=== PATIENT | female | born 1990 | race African-American/Black ===

== ENCOUNTER 2024-04-12 16:41 | Emergency (ER) | payer OTHER, SELFPAY ==
--- NOTE | ~2024-04-12 | US_ITS ---
EXAMINATION: US PELVIS CLINICAL INFORMATION: Pain with question of IUD migration COMPARISON: None available. TECHNIQUE: Ultrasound of the pelvis is performed using both transabdominal and transvaginal transducers along with Doppler. Transvaginal imaging is performed due to inadequate visualization transabdominally. FINDINGS: Uterus: The uterus is anteverted and measures 7.7 x 4.3 x 4.9 cm. And IUD is present in the uterus which appears to be positioned low in the endometrial cavity and there is a question of discontinuity of the arms. The double wall endometrial thickness is 5 mm. The uterus is smooth in contour and has normal myometrial echogenicity. No visible fibroid. Adnexa: Both ovaries are visualized. There is normal color flow to the adnexa. There is no ovarian torsion. There is no pelvic ascites or fluid collection. Right ovary measures 4.1 x 2.4 x 1.8 cm for a volume of 9.4 mL which includes a corpus luteal cyst measuring 1.7 cm. Left ovary measures 2.6 x 1.6 x 2.1 cm for a volume of 4.6 mL with a punctate 1 mm calcification. US/US pelvic and transvaginal IMPRESSION: IUD appears to be positioned low in the endometrial cavity and there is a question of discontinuity of the arms and fracture.
[2024-04-12 16:43] VITALS: BP 123/72; PULSE 81; RESP 14; TEMP 36.1; O2SAT 98; BMI 30.5
--- NOTE | 2024-04-12 16:50 | ED.GENADULT ---
[facility] - General Adult General Chief complaint: Vaginal Bleeding Stated complaint: issue with IUD Time Seen by Provider: 04/12/24 20:37 Source: patient and RN notes reviewed Mode of arrival: ambulatory Limitations: no limitations History of Present Illness ED Provider: Crystal Us PA-C [facility] narrative: This is a 34-year-old female, , who presents emergency department with complaints of vaginal bleeding and pelvic pain. Patient reports that on Wednesday night she was having penetrative sexual intercourse and noticed that throughout the day she became increasingly more sore. She states that the following day she noticed some bleeding every time she wipes after using the restroom. She denies history of similar symptoms in the past. She [facility] She does not have an OBGYN, last seen by OBGYN 10 years ago when her daughter was born. She denies any fevers, chills, chest pain, shortness on breath, nausea, vomiting, dysuria, hematuria, frequency or urgency. She does endorse foul smelling discharge/clots. She typically has normal menses, last menstrual cycle was March 19. Denies any other complaints or concerns at this time. MD complaint: Vaginal bleeding, pelvic pain Relieving factors: none Exacerbating factors: none Associated symptoms: denies other symptoms Treatments prior to arrival: none Related Data Previous Rx's ?Medication ?Instructions ?Recorded doxycycline hyclate 100 mg capsule 100 mg PO BID 7 days #13 caps 04/12/24 Allergies Allergy/AdvReac Type Severity Reaction Status Date / Time promethazine [Phenergan] AdvReac Unknown shake, Verified 04/12/24 16:49 tremors From PHENERGAN Allergy Unknown INVOLUNTARY Uncoded 08/08/20 18:10 SPASMS, SHAKES Review of Systems Review of Systems: Yes all other systems are reviewed and are negative Constitutional: Constitutional: Reports as per [facility] Past Medical History Attestation statement: The following information was validated with the patient. Social History Social History Alcohol intake: current Alcohol intake frequency: holidays/special occasions only Smoked in Last 30 Days: No Use of substances other than those prescribed or required for medical reasons: No Any prior treatment program specific to substance use: No Advance Directives: No Advance Directives Information Provided: No Do you have a plan to hurt others: No Plan Patient : No Physical Exam ED Vital Signs: Vital Signs - 24 hr 04/12/24 16:43 04/12/24 20:30 04/12/24 22:43 Temperature 97.0 F 97.4 F 97.4 F Pulse Rate 81 73 73 Respiratory Rate 14 16 16 Blood Pressure 123/72 111/56 L 111/56 L Pulse Oximetry 98 100 100 Oxygen Delivery Method Room Air Room Air Room Air BMI result Body Mass Index 30.5 Const General: cooperative, comfortable and no acute distress Orientation/consciousness: patient oriented x3 Limitations: no limitations HENMT Head: Yes normal to inspection, Yes normocephalic and Yes atraumatic Ears: hearing grossly normal bilaterally General nose exam: Normal external nose present Face and sinus: Yes normal facial exam Mouth: Normal oral and palatal mucosa present, oropharynx normal and moist mucous membranes Throat: Yes posterior oropharynx normal Eyes General: appearance normal, both eyes and all related structures Eyelids: Yes eyelids normal Conjunctivae: conjunctivae normal Sclerae: sclerae normal Pupils: Equal, round and reactive pupils present EOM: EOMs intact bilaterally Neck Neck: Yes normal visual inspection, Yes full ROM and Yes no lymphadenopathy Lymphatic: no lymphadenopathy noted Chest Chest palpation & inspection: normal inspection of the chest Resp Effort & Inspection: normal respiratory effort and able to speak in complete sentences Auscultation: clear to auscultation bilaterally, no crackles, no rales, no rhonchi and no wheezes Cardio Rate: regular rate Rhythm: regular rhythm Heart sounds: S1 normal heart sound present and S2 normal heart sound present GI Other: Abdomen is soft, with no exquisite tenderness noted on examination, suprapubic cramping noted, no point tenderness noted. Inspection: Yes normal to inspection Other: Pelvic examination performed with Pily gibbons RN present at all times. There is active bright red blood noted coming from the cervical os, no IUD strings identified on pelvic examination. General: Yes Bimanual renal exam normal bilaterally External Female Exam: normal external appearance and normal appearance of the urethra Speculum Exam - Vagina: normal appearance of the vagina and normal palpation Speculum Exam - Cervix: normal appearance of the cervix, Cervical os closed and nontender Bimanual exam- vagina & uterus: normal palpation and No Cervical tenderness present Bimanual Exam- Adnexa, other: normal adnexae Skin General skin exam: no rashes or lesions noted Trauma: no lacerations or abrasions Wounds: no wounds Neuro General: patient oriented x3 and moves all extremities Cranial nerves: Yes Equal, round and reactive pupils present Extrem General: Yes normal to inspection Right upper extremity: normal to inspection Left upper extremity: normal to inspection Right lower extremity: normal to inspection Left lower extremity: normal to inspection Course Course Course Narrative: 34-year-old female presents for evaluation of pelvic pain and vaginal bleeding. She reports having sexual intercourse last Wednesday night. She states that she had some discomfort the following day and has had vaginal bleeding and pelvic pain since. She reports she went to urgent care yesterday and ?they could not see my IUD strings. ? Plan for labs, , pelvic ultrasound Reevaluation(s) Time: 22:00 Medications Administered Discontinued Medications Generic Name Dose Route Start Last Admin Trade Name Freq PRN Reason Stop Dose Admin Ceftriaxone Sodium 500 mg/ 0 mg 04/12/24 21:43 04/12/24 22:09 Lidocaine HCl 1 ml IM 04/12/24 21:44 350 kit ONCE ONE Administration Doxycycline Monohydrate 100 mg 04/12/24 21:43 04/12/24 22:09 Doxycycline Monohydrate 100 Mg Capsule PO 04/12/24 21:44 100 mg ONCE ONE Administration Medical Decision Making Medical Decision Making [facility] Narrative: This is a 34-year-old female, , who presents emergency department with complaints of vaginal bleeding cramping. Patient currently has an IUD that was placed approximately 8 years ago, and states that over the weekend she was having intercourse and states that several hours later she became very sore. She states that she has had bleeding every time she is wiping while using the restroom. She states that this is a new partner, reports that she would like prophylactic treatment for STIs. Labs, UA, an ultrasound was ordered prior to my assessment. Ultrasound revealed possible fractured IUD in a low-lying uterus. Pelvic examination revealing mild blood noted coming from the closed cervical os, no cervical motion tenderness, no abnormal vaginal discharge. No palpable masses, and no significant tenderness on examination. I discussed this finding with my attending physician, Dr. Lisa is in agreement with plan and workup. We do not have OBGYN coverage, therefore unable to provide any input. Uterine perforation unlikely as patient has no significant tenderness, with a essentially normal physical exam. There is no IUD string present on pelvic examination. Given findings of ultrasound, I advised patient to follow-up with OBGYN outpatient. There has no urgent need for transfer for or escalation of care at this time given patient not significantly tender, normal vital signs, and blood work within normal limits. I discussed this finding and plan with patient who understands and agrees with plan. Patient given OBGYN referral, advised to call tomorrow to make an appointment. She understands and agrees with plan. She was given return precautions. Patient stable for discharge. Differential Diagnosis Differential Diagnoses: The differential diagnosis associated with the presentation includes IUD malfunction, abnormal uterine bleeding, , uterine rupture-unlikely Admission/Observation Consideration of admission/observation: Escalation of care including admission/observation considered Escalation of care including admission/observation considered however given workup today not warranted at this time. Lab Data MDM Lab Attestation statement: I reviewed the patient's lab results. No leukocytosis, stable H&H, chemistry within normal limits, UA revealing small blood, otherwise does not appear to be infected. HCG negative 04/12/24 17:29 04/12/24 17:29 Labs: Lab Results 04/12/24 Range/Units 17:29 WBC 8.1 (4.8-10.8) X10*3/uL RBC 4.45 (4.20-5.50) X10*6/uL Hgb 14.3 (12.0-16.0) g/dl Hct 41.9 (37.0-47.0) % MCV 94.2 (80.0-98.0) fL MCH 32.1 (27.0-33.0) pg MCHC 34.1 (31.0-35.0) g/dl RDW 12.8 (11.0-16.0) % Plt Count 246 (160-400) X10*3/uL MPV 10.8 (9.4-12.3) fL Immature Gran % (Auto) 0.2 (0.0-0.4) % Neut % (Auto) 58.1 (45-73) % Lymph % (Auto) 33.1 (20-40) % Cannon % (Auto) 7.9 (2-11) % Eos % (Auto) 0.5 (0-4) % Baso % (Auto) 0.2 (0-2) % Lymph # (Auto) 2.7 (1.2-4.9) X10*3/uL Cannon # (Auto) 0.6 (0.1-1.2) X10*3/uL Eos # (Auto) 0.0 (0.0-0.4) X10*3/uL Baso # (Auto) 0.0 (0.0-0.2) X10*3/uL Abs Immat Gran (auto) 0.02 (0.00-0.03) X10*3/uL Absolute Neuts (auto) 4.7 (2.0-8.3) x10*3/uL Absolute Nucleated RBC 0.000 (0.0-0.012) X10*3/uL Nucleated RBC % (auto) 0.0 (0.0-0.2) /100WBC Sodium 137 (135-145) mmol/L Potassium 3.5 (3.3-5.1) mmol/L Chloride 106 (96-108) mmol/L Carbon Dioxide 24 (22-29) mmol/L Anion Gap 11 L (12-20) BUN 8 L (9-16) mg/dL Creatinine 0.83 (0.5-1.4) mg/dL Estim Creat Clear Calc 93.5 Estimated GFR > 60 Random Glucose 85 (60-115) mg/dL Calcium 9.9 (8.4-10.2) mg/dL Total Bilirubin 0.3 (0.0-1.0) mg/dL AST 21 (5-31) U/L ALT 14 (0-31) U/L Alkaline Phosphatase 70 (39-117) U/L Total Protein 8.1 H (6.5-8.0) g/dL Albumin 4.1 (3.5-5.0) g/dL Lipase 22 (8-78) U/L Beta HCG, Quant < 2 mIU/mL Urine Color Yellow Urine Appearance Clear Urine pH 6.0 (5.0-9.0) Ur Specific [place] 1.010 (1.005-1.025) Urine Protein Negative (Neg-Trace) mg/dL Urine Glucose (UA) Negative (Negative) mg/dL Urine Ketones Negative (Negative) mg/dL Urine Blood Small (1+) H (Negative) Urine Nitrite Negative (Negative) Ur Leukocyte Esterase Negative (Negative) Urine RBC 0-2 (0-2) /HPF Urine WBC 0-5 (0-5) /HPF Ur Squamous Epith Cells 3-5 (0-2) /HPF Urine Bacteria None Seen (None Seen) Hyaline Casts 0-2 (0-2) /LPF Radiology Impression Discussion of test interpretation with radiology: I have reviewed the radiologist's reading. Radiologist Impression: FINDINGS: Uterus: The uterus is anteverted and measures 7.7 x 4.3 x 4.9 cm. And IUD is present in the uterus which appears to be positioned low in the endometrial cavity and there is a question of discontinuity of the arms. The double wall endometrial thickness is 5 mm. The uterus is smooth in contour and has normal myometrial echogenicity. No visible fibroid. Adnexa: Both ovaries are visualized. There is normal color flow to the adnexa. There is no ovarian torsion. There is no pelvic ascites or fluid collection. Right ovary measures 4.1 x 2.4 x 1.8 cm for a volume of 9.4 mL which includes a corpus luteal cyst measuring 1.7 cm. Left ovary measures 2.6 x 1.6 x 2.1 cm for a volume of 4.6 mL with a punctate 1 mm calcification. US/US pelvic and transvaginal IMPRESSION: IUD appears to be positioned low in the endometrial cavity and there is a question of discontinuity of the arms and fracture. Dictated By: Gabino Avila MD Critical Care Time Critical Care Time Critical Care Time: Yes Total Critical Care Time: 35 Attestation: I have personally provided critical care time exclusive of time spent on separately billable procedures. Time includes review of lab data, radiology results, discussion with consultants, and monitoring for potential decompensation. Intervention performed as documented. Discharge Plan Discharge Clinical Impression: Vaginal bleeding Patient Disposition: Home, Self-Care Instructions: Dysfunctional Uterine Bleeding (ED) Additional Instructions: You were seen in the emergency department due to abnormal vaginal bleeding and cramping. We obtained an ultrasound which revealed a low lying IUD and there has a question of a break in the IUD. This requires OBGYN follow-up, please call the office tomorrow to have this evaluated. Drink plenty of fluids get plenty of rest. Take ibuprofen or Tylenol as needed for cramping. Warm compresses to your pelvic region can also help with symptoms. We medicated you with ceftriaxone prophylactically for STDs. We also gave you a dose of doxycycline, this is a antibiotic. You must continue taking this twice a day for the next 7 days. Your swabs are being sent down for further testing and analysis, we will call you with any positive results. If any new or worsening symptoms occur including but not limited to fevers, chills, worsening abdominal pain, nausea, vomiting, worsening vaginal bleeding, please return for re-evaluation. Prescriptions: New doxycycline hyclate 100 mg capsule 100 mg PO BID 7 Days Qty: 13 0RF Referrals: [facility] [place] Group] Interventions: ED Discharge Assessment Last Done: 04/12/24 22:43 Discharge Date/Time: 04/12/24 22:15 Print Language: Kuwaiti
[2024-04-12 17:34] LABS: MANUAL DIFF FLAG NO
[2024-04-12 17:36] LABS: Appearance Urine Clear; Color Urine Yellow; Glucose Urine UA Negative (Negative); Leukocyte Esterase Urine Negative (Negative); Nitrite Urine Negative (Negative); UMIC TRIGGER UACC YES; Urine Blood Small (1+) (Negative); Urine Ketones Negative (Negative); Urine Protein Negative (Neg-Trace)
[2024-04-12 17:43] LABS: Basophils Percent Auto 0.2 % (0-2); Eosinophils Percent Auto 0.5 % (0-4); Hematocrit 41.9 % (37.0-47.0); Hemoglobin 14.3 g/dl (12.0-16.0); Imm Gran Abs Auto 0.02 X10*3/uL (0.00-0.03); Imm Gran Pct Auto 0.2 % (0.0-0.4); Lymphocytes Absolute Auto 2.7 X10*3/uL (1.2-4.9); Lymphocytes Percent Auto 33.1 % (20-40); Mean Corpuscular HGB Conc 34.1 g/dl (31.0-35.0); Mean Corpuscular Hemoglobin 32.1 pg (27.0-33.0); Mean Corpuscular Volume 94.2 fL (80.0-98.0); Mean Platelet Volume 10.8 fL (9.4-12.3); Monocytes Absolute Auto 0.6 X10*3/uL (0.1-1.2); Monocytes Percent Auto 7.9 % (2-11); Neutrophils Absolute Auto 4.7 x10*3/uL (2.0-8.3); Neutrophils Percent Auto 58.1 % (45-73); Platelet Count 246 X10*3/uL (160-400); Red Blood Count 4.45 X10*6/uL (4.20-5.50); Red Cell Distribution Width 12.8 % (11.0-16.0); White Blood Count 8.1 X10*3/uL (4.8-10.8)
[2024-04-12 17:48] LABS: Anion Gap 11 (12-20)
[2024-04-12 17:52] LABS: Bacteria Urine None Seen (None Seen); Hyaline Casts Urine 0-2 /LPF (0-2); RBC Urine 0-2 /HPF (0-2); WBC Urine 0-5 /HPF (0-5)
[2024-04-12 18:01] LABS: Alanine Aminotransferase 14 U/L (0-31); Alkaline Phosphatase 70 U/L (39-117); Aspartate Amino Transferase 21 U/L (5-31); Bilirubin Total 0.3 mg/dL (0.0-1.0); Blood Urea Nitrogen 8 mg/dL (9-16); Creatinine Clr Calc Pharmacy 93.5; Estimated Glomerular Filt Rate > 60; Lipase 22 U/L (8-78)
[2024-04-12 18:06] LABS: Albumin Level 4.1 g/dL (3.5-5.0); Calcium 9.9 mg/dL (8.4-10.2); Carbon Dioxide 24 mmol/L (22-29); Chloride 106 mmol/L (96-108); Glucose Random 85 mg/dL (60-115); HCG Quantitative < 2 mIU/mL; Potassium 3.5 mmol/L (3.3-5.1); Sodium 137 mmol/L (135-145); Total Protein 8.1 g/dL (6.5-8.0)
[2024-04-12 20:30] VITALS: BP 111/56; PULSE 73; RESP 16; TEMP 36.3; O2SAT 100
[2024-04-12] MEDS: cefTRIAXone sodium 500 MG, Lidocaine HCl 1 % MPF 1 ML IM (22:09)
[2024-04-12] MEDS: Doxycycline Monohydrate 100 MG CAPSULE PO (22:09)
[2024-04-12 22:43] VITALS: BP 111/56; PULSE 73; RESP 16; TEMP 36.3; O2SAT 100
[2024-04-13 06:53] LABS: CT PCR NOT DETECTED (Not Detect.); NG PCR NOT DETECTED (Not Detect.)
[2024-04-13 11:17] LABS: Bacterial Vaginosis PCR POSITIVE (Negative); Candida Group PCR NOT DETECTED (Not Detect); Candida glab krusei PCR NOT DETECTED (Not Detect); Trichomonas vaginalis PCR NOT DETECTED (Not Detect)
== END 2024-04-12 22:15 | disposition home or self-care (01) ==
PROVIDERS: Physician Assistant; Physician Assistant Medical; Emergency Provider Emergency Medicine
DX: N93.0 Postcoital and contact bleeding (principal); R10.2 Pelvic and perineal pain; Z97.5 Presence of (intrauterine) contraceptive device; Z72.89 Other problems related to lifestyle
CPT/HCPCS: 0352U; 0353U; 36415; 76830; 76856; 80053; 81001; 83690; 84702; 85025; 96372; 99284; J0696

== ENCOUNTER 2025-09-24 09:08 | Emergency (ER) | payer OTHER, SELFPAY ==
--- NOTE | ~2025-09-24 | XR_ITS ---
EXAMINATION: XR KNEE, RIGHT CLINICAL INFORMATION: pain/swelling COMPARISON: None available. TECHNIQUE: AP oblique and lateral views of the right knee. FINDINGS: No acute cortical disruption or malalignment. No lytic or blastic lesions. No gross suprapatellar bursa joint effusion. No chondrocalcinosis in the menisci. No metallic or radiopaque foreign body. No subcutaneous emphysema. Probable vascular calcifications in the popliteal region. XR/XR knee RT 4V IMPRESSION: No acute fracture or dislocation. Internal derangement cannot be excluded. Electronically signed by: Nishant Simmons MD 09/24/2025 09:32 AM EST
[2025-09-24 09:10] VITALS: BP 130/84; PULSE 88; RESP 16; TEMP 35.7; O2SAT 100; BMI 37.1
--- NOTE | 2025-09-24 09:55 | ED_ITS ---
HPI - Extremity Problem General Chief complaint: Extremity Problem Stated complaint: R knee swelling, painful Time Seen by Provider: 09/24/25 09:54 Source: patient Mode of arrival: ambulatory Limitations: no limitations History of Present Illness ED Provider: KAYLEE ALVAREZ PA-C HPI Narrative: 35 year old female presents to the ED today for evaluation of right knee pain x2 days. Reports walking and feeling a pop in her right knee 2 days ago. The following morning, yesterday, awoke with right knee pain/swelling. Reports full ROM to right knee however flexing/extending induces pain. Pain is exacerbated with bearing weight on the right leg. Denies blunt injury/trauma. No hx of surgery to the right knee. Denies fever/ chills, numbness/tingling/weakness of the RLE. Related Data Previous Rx's ?Medication ?Instructions ?Recorded doxycycline hyclate 100 mg capsule 100 mg PO BID 7 day s #13 caps 04/12/24 metronidazole 500 mg tablet 500 mg PO BID #14 tabs 08/15 Allergies Allergy/AdvReac Type Severity Reaction Status Date / Time promethazine (Phenergan) AdvReac Unknown shake, Verified 09/24/25 09:11 tremors From PHENERGAN Allergy Unknown INVOLUNTARY Uncoded 08/08/20 18:10 SPASMS, SHAKES Review of Systems Review of Systems: Yes all other systems are reviewed and are negative [facility] Past Medical History Attestation statement: The following information was validated with the patient. Source: old records reviewed and nursing notes reviewed Social History Social History Alcohol intake: current Alcohol intake frequency: holidays/special occasions only Advance Directives: No Advance Directives Information Provided: No Physical Exam Vital Signs: Vital Signs: Last Vital Signs Temp 97.9 F 09/24/25 10:35 Pulse 85 09/24/25 10:35 Resp 18 09/24/25 10:35 BP 122/77 09/24/25 10:35 Pulse Ox 96 09/24/25 10:35 O2 Del Method Room Air 09/24/25 10:35 BMI result Body Mass Index 37.1 vital signs stable, afebrile General: Well appearing, in no acute distress. Skin: Warm, dry, intact. No rashes or lesions. Head: Normocephalic, atraumatic. EENT: Hearing is intact b/l. Conjunctiva clear. PERRLA. EOM intact. Moist mucous membranes.? Cardiac: Chest wall symmetric. RRR Lungs: Normal respiratory effort without accessory muscle use. CTA bilaterally Ext: +noted swelling to right knee when compared to left. no obvious deformity or overlying erythema/ecchymosis. no high riding patella. no palpable deformity, crepitus, fluctuance, warmth. Reproducible tenderness to palpation of medial aspect of right knee. Full ROM intact although somewhat limited with flexion secondary to pain. Able to fully extend right knee. no calf tenderness. no pitting edema. 2+ popliteal pulse. Neuro: AOx3. Normal speech. Ambulating with steady gait Course Course Course Narrative: X-ray right knee without acute fracture or dislocation. There is no obvious joint effusion She is able to extend the right hip and knee. Unlikely quadriceps or patellar tendon injury. Question ligament/meniscal injury. Will place patient in a knee immobilizer and provide her with crutches. I offered Toradol in the ED today for both pain and inflammation. Patient is declining, states she does not like taking any medication. Informed her that this will help with the swelling as well. Advised Tylenol and Motrin at home, she states that she will likely not be taking these. Advised ortho follow up. Patient has remained stable throughout ED visit today. Discussed worrisome signs and symptoms and when to return to the ED. All questions answered at this time. Patient is agreeable with disposition and stable for discharge. Medical Decision Making Medical Decision Making MDM Narrative: 35 year old female presents to the ED today for evaluation of right knee pain x2 days. vitals are stable. she is well appearing, sitting comfortably on the exam bed. on exam, noted swelling to right knee when compared to left. no obvious deformity or overlying erythema/ecchymosis. no high riding patella. no palpable deformity, crepitus, fluctuance, warmth. Reproducible tenderness to palpation of medial aspect of right knee. Full ROM intact although somewhat limited with flexion secondary to pain. Able to fully extend right knee. no calf tenderness. no pitting edema. 2+ popliteal pulse. Differential diagnosis includes msk sprain/strain, contusion, bursitis, arthritis, tenosynovitis, patellofemoral syndrome. Less likely fracture, dislocation, popliteal cyst. Unlikely DVT, NV compromise, threat to limb, compartment syndrome, gout, pseudogout. Plan for imaging. Patient is declining any pain control at this time. Differential Diagnosis Differential Diagnoses: The differential diagnosis associated with the presentation includes As above Admission/Observation not indicated Independent Interpretation I performed an independent interpretation of an: Plain X-Ray Interpretation: xr right knee w/o effusion Radiology Impression Discussion of test interpretation with radiology: I have reviewed the radiologist's reading. Radiologist Impression: Procedure(s): XR knee RT 4V Accession Number(s): [id number] cc: Generic ED Physician; Physician,None ~ Reason for Exam: pain/swelling EXAMINATION: XR KNEE, RIGHT CLINICAL INFORMATION: pain/swelling COMPARISON: None available. TECHNIQUE: AP oblique and lateral views of the right knee. FINDINGS: No acute cortical disruption or malalignment. No lytic or blastic lesions. No gross suprapatellar bursa joint effusion. No chondrocalcinosis in the menisci. No metallic or radiopaque foreign body. No subcutaneous emphysema. Probable vascular calcifications in the popliteal region. XR/XR knee RT 4V IMPRESSION: No acute fracture or dislocation. Internal derangement cannot be excluded. Electronically signed by: Nishant Simmons MD 09/24/2025 09:32 AM [facility] [place] External Record Review External record reviewed: Inpatient record Prescription Management I considered prescription management with: Pain Medication Social Determinants Patient?s care significantly limited by Social Determinants of Health including: Other Social Determinant of Health Procedures Orthopedic Splinting/Casting Injury #1: Side: right Lower Extremity Injury Location: knee Lower Extremity Immobilizer: knee immobilizer Other Orthopedic Equipment: crutches Critical Care Time Critical Care Time Critical Care Time: No Discharge Plan Discharge Clinical Impression: Right knee sprain Patient Disposition: Home, Self-Care Instructions: Knee Sprain (ED), Crutch Instructions (ED) Additional Instructions: You were evaluated in the ED today for evaluation of right knee pain. I have concern for a ligament/tendon injury. You were placed in a knee immobilizer today and provided with crutches. Please wear the knee immobilizer brace for 24 to 48 hours. allow your knee to rest. after 48 hours you can work on gentle range of motion testing of the knee but stop when you have pain. use crutches as needed but can bear weight on your toes. You would benefit from an outpatient MRI of your right knee. Please follow up with either PCP or the orthopedic team for this. I have provided you with a referral. Call them to establish care. They will not call you. As discussed, you may take Tylenol and Motrin at home for pain/discomfort. Return with any new or worsening symptoms. In the case of an emergency call 911. Prescriptions: No Action doxycycline hyclate 100 mg capsule 100 mg PO BID 7 Days Qty: 13 0RF metronidazole 500 mg tablet 500 mg PO BID Qty: 14 0RF Referrals: Physician,None [Primary Care Provider, Medical] Discharge Date/Time: 09/24/25 12:14 Print Language: British
[2025-09-24 10:35] VITALS: BP 122/77; PULSE 85; RESP 18; TEMP 36.6; O2SAT 96
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
== END 2025-09-24 12:14 | disposition home or self-care (01) ==
PROVIDERS: Emergency Provider Emergency Medicine
DX: S83.91XA Sprain of unspecified site of right knee, initial encounter (principal); M25.561 Pain in right knee; X58.XXXA Exposure to other specified factors, initial encounter; Y93.89 Activity, other specified; Y92.89 Other specified places as the place of occurrence of the external cause; Y99.8 Other external cause status
CPT/HCPCS: 73564; 99283

== ENCOUNTER → 2025-09-24 09:15 | Outpatient (BNV) | payer OTHER, SELFPAY | PROVIDERS: Visit Provider Radiology Diagnostic Radiology | DX: M25.561 Pain in right knee (principal); R22.42 Localized swelling, mass and lump, left lower limb | CPT/HCPCS: 73564 ==